=== PATIENT | male | born 1980 | race Caucasian/White ===

== ENCOUNTER 2020-10-11 19:28 | Emergency (ER) | payer SELFPAY ==
[~2020-10-11] VITALS: Ht 170 cm; Wt 99.8 kg
[2020-10-11 20:22] VITALS: BP 133/84
--- NOTE | 2020-10-11 21:21 | ED Cough/URI ---
General Chief Complaint: Cough/Cold/Flu Symptoms Stated Complaint: COUGH/CONGESTION/HEADACHE/COVID EXPOSED Nursing Triage Note: REPORTS EXPOSURE TO COVID 10/08/20 REPORTS COUGH X10 DAYS, HEADACHE X2 DAYS. Sepsis Screen: No Definite Risk Source: patient History of Present Illness Date Seen by Provider: Oct 11, 2020 Time Seen by Provider: 20:28 Initial Comments PT ARRIVES VIA POV GIRLFRIEND IS ALSO BEING SEEN FOR SAME ( LELAND LOPES) BOTH HERE FOR COVID-19 TEST PT STATES HE HAS HAD A HEADACHE BEHIND BOTH EYES FOR 2 DAYS HAS HAD MILD NON-PRODUCTIVE COUGH X 10 DAYS NO CHEST PAIN NO SHORTNESS OF BREATH NO FEVER/SWEATS/CHILLS NO LOSS OF TASTE OR SMELL NO SORE THROAT NO GI SYMPTOMS NO BODY ACHES HAS NOT TAKEN ANYTHING FOR SYMPTOMS AT ANY TIME SYMPTOMS NO DIFFERENT TONIGHT IN ANY WAY HAS NOT SOUGHT CARE UNTIL TONIGHT STATES HE IS HERE "BECAUSE OF MY GIRLFRIEND" STATES HE WAS POSSIBLY EXPOSED TO COVID ON Friday10/08/20, ANOTHER PERSON TH EY WERE AROUND TESTED + FOR COVID-19 ON FRIDAY/ 10/10/20 [facility] [place] Allergies and Home Medications Allergies Coded Allergies: No Known Drug Allergies (Unverified , 10/11/20) Patient Home Medication List Home Medication List Reviewed: Yes Review of Systems Review of Systems Constitutional: no symptoms reported; No chills, No diaphoresis, No dizziness, No fever, No malaise, No weakness EENTM: see HPI, nose congestion; No ear pain, No throat pain Respiratory: see HPI, cough; No short of breath, No wheezing Cardiovascular: no symptoms reported Gastrointestinal: no symptoms reported; No abdominal pain, No diarrhea, No loss of appetite, No nausea, No vomiting Genitourinary: no symptoms reported Musculoskeletal: no symptoms reported Skin: no symptoms reported Psychiatric/Neurological: See HPI, Headache Hematologic/Lymphatic: No Symptoms Reported Immunological/Allergic: no symptoms reported Past Dqycqyi-Cslfsg-Emtbhz Hx Past Med/Social Hx: Reviewed and Corrections made Patient Social History Alcohol Use: Denies Use Recreational Drug Use: No Smoking Status: Never a Smoker Type Used: Smokeless Tobacco 2nd Hand Smoke Exposure: No Recent Foreign Travel: No Contact w/Someone Who Travel: No Recent Infectious Disease Expo: No Recent Hopitalizations: No Immunizations Up To Date Tetanus Booster (TDap): Unknown Seasonal Allergies Seasonal Allergies: No Past Medical History Surgeries: Yes Orthopedic Respiratory: No Cardiac: No Neurological: No Genitourinary: No Gastrointestinal: No Musculoskeletal: Yes Endocrine: No HEENT: No Cancer: No Psychosocial: Yes PTSD Integumentary: No Blood Disorders: No Physical Exam Vital Signs - First Documented 10/11/20 20:22 Temp 36.9 Pulse 68 Resp 16 B/P (MAP) 133/84 (100) Pulse Ox 98 O2 Delivery Room Air Capillary Refill : Less Than 3 Seconds Height: '" Weight: lbs. oz. kg; 34.00 BMI Method: General Appearance: WD/WN, no apparent distress, other (DOES NOT APPEAR ILL OR TO BE IN ANY DISCOMFORT OR DISTRESS. NO COUGH NOTED AT ANY TIME) HEENT: PERRL/EOMI, normal ENT inspection, TMs normal, pharynx normal Neck: non-tender, full range of motion, supple, normal inspection Respiratory: normal breath sounds, no respiratory distress, no accessory muscle use Cardiovascular: regular rate, rhythm, no murmur Gastrointestinal: non tender, soft Extremities: normal inspection, normal capillary refill Neurologic/Psychiatric: smutter II-XII nml as tested, no motor/sensory deficits, alert, normal mood/affect, oriented x 3 Skin: normal color, warm/dry; No rash Progress/Results/Core Measures Suspected Sepsis Recent Fever Within 48 Hours: No Infection Criteria Present: None New/Unexplained Altered Menta: No Sepsis Screen: No Definite Risk SIRS Temperature: Pulse: 68 Respiratory Rate: 16 Blood Pressure 133 /84 Mean: 100 Results/Orders Lab Results Laboratory Tests Test 10/11/20 20:31 Range/Units Coronavirus 2018 (HEATHER) Negative Negative Micro Results Microbiology 10/11/20 Influenza Types A,B Antigen (MARTINEZ) - Final, Complete My Orders Orders - JAMAR BALDERAS DO Influenza A And B Antigens (10/11/20 20:27) Coronavirus Sars-Cov-2 So 2018 (10/11/20 20:27) Covid 19 Inhouse Test (10/11/20 20:27) Vital Signs/I&O 10/11/20 10/11/20 20:22 20:22 Temp 36.9 Pulse 68 Resp 16 B/P (MAP) 133/84 (100) Pulse Ox 98 O2 Delivery Room Air Room Air Capillary Refill : Less Than 3 Seconds Blood Pressure Mean: 100 Progress Note : Progress Note PLACED IN ISOLATION ROOM PPE WORN AT ALL TIMES COVID-19 TESTING PERFORMED PT ADVISED OF NEED FOR QUARANTINE Departure Impression Primary Impression: Person under investigation for COVID-19 Disposition: 01 HOME, SELF-CARE Condition: Stable Departure-Patient Inst. Patient Instructions: Coronavirus Disease 2019 (COVID-19) (DC), Cough, Runny Nose, and the Common Cold (DC) Add. Discharge Instructions: LOTS OF CLEAR LIQUIDS TYLENOL AND MOTRIN NEEDED FOR PAIN OR FEVER OVER THE COUNTER MEDICATIONS NEEDED FOR COUGH AND CONGESTION QUARANTINE YOURSELF, ALL HOUSEHOLD MEMBERS AND ALL CLOSE CONTACTS FOR 2 WEEKS OR UNTIL CLEARED BY OR HEALTH DEPT. IF YOUR COVID TEST IS NEGATIVE AND YOU ARE STILL HAVING SYMPTOMS, YOU MAY NEED TO BE RE-TESTED IN 5-7 DAYS BY [facility] DEPT OR OF CHOICE. All discharge instructions reviewed with patient and/or family. Voiced understanding. JAMAR BALDERAS DO Oct 11, 2020 21:21
== END 2020-10-11 21:22 | disposition home or self-care (01) ==
LOC: EDUNIT# 19:28 → ER 19:31
DX: Z20.828 Contact with and (suspected) exposure to other viral communicable diseases (principal)
CPT/HCPCS: 87804; 99282; U0002; 87635